=== PATIENT | male | born 1985 | race Caucasian/White ===

== ENCOUNTER 2021-03-22 09:43 | Emergency (ER) | payer BC ==
[~2021-03-22] VITALS: Ht 180.3 cm; Wt 110.0 kg
--- NOTE | 2021-03-22 10:31 | NUR ---
REPORT OF PT FROM KADEEM WOOD. ASSUMING CARE OF PT AT THIS TIME.
[2021-03-22 10:54] VITALS: BP 126/82
--- NOTE | 2021-03-22 10:55 | NUR ---
REPORT OF PT TO RN ROBYN AT THIS TIME. ALL QUESTIONS ANSWERED.
== END 2021-03-22 10:56 | disposition home or self-care (01) ==
LOC: ED 10:35
DX: F31.9 Bipolar disorder, unspecified (principal); Z76.0 Encounter for issue of repeat prescription
CPT/HCPCS: 99281

== ENCOUNTER 2021-05-18 10:29 | Emergency (ER) | payer MEDICAID ==
[~2021-05-18] VITALS: Ht 180.3 cm; Wt 116.5 kg
[2021-05-18] MEDS ORDERED: ASPIRIN 81 MG TABLET CHEW ONE (10:59)
[2021-05-18] MEDS ORDERED: ASPIRIN 81 MG TABLET CHEW PO ONE (11:00)
--- NOTE | 2021-05-18 11:00 | NUR ---
PATIENT WALKED BACK FROM TRIAGE WITH CHIEF C/O MIGRAINE X4 DAYS. PATIENT REPORTS N/V/D, DENIES SOB OR CP. NADN, CONNECTED TO MONITOR, VSS, CALL LIGHT WITHIN REACH.
[2021-05-18 11:28] LABS: ALANINE AMINOTRANSFERASE 41 U/L (12-78); ALBUMIN 3.7 g/dL (3.4-5.0); ANION GAP 5 mmol/L (5-15); CALCIUM 9.1 mg/dL (8.5-10.1); CHLORIDE 110 mmol/L (98-107); CREATININE 0.95 mg/dL (0.7-1.3)
[2021-05-18] MEDS ORDERED: MORPHINE SULFATE 4 MG/ML, 1ML IVPush PRN (11:30)
[2021-05-18 11:33] LABS: ALKALINE PHOSPHATASE 110 U/L (45-117); BILIRUBIN,TOTAL 0.6 mg/dL (0.2-1.0); TOTAL PROTEIN 6.7 g/dL (6.4-8.2); TROPONIN I < 0.015 ng/mL (0.000-0.045)
[2021-05-18] MEDS ORDERED: KETOROLAC 30 MG/1 ML ONE (11:41)
[2021-05-18] MEDS ORDERED: DEXAMETHASONE 4 MG/ML, 5ML ONE (11:41)
[2021-05-18] MEDS ORDERED: ONDANSETRON 2MG/ML, 2ML ONE (11:41)
[2021-05-18] MEDS ORDERED: MORPHINE SULFATE 4 MG/ML, 1ML ONE (11:42)
--- NOTE | 2021-05-18 11:58 | NUR ---
20 GAUGE IV STARTED LEFT AC, PATIENT MEDICATED PER eMAR, CONNECTED TO MONITOR, VSS, NADN, CALL LIGHT WITHIN REACH.
[2021-05-18] MEDS ORDERED: DEXAMETHASONE 4 MG/ML, 1ML IVPush SCH (12:00)
[2021-05-18] MEDS ORDERED: KETOROLAC 30 MG/1 ML IVPush ONE (12:30)
[2021-05-18] MEDS ORDERED: ONDANSETRON 2MG/ML, 2ML IVPush ONE (12:30)
[2021-05-18] MEDS ORDERED: SODIUM CHLORIDE 0.9% 1,000ML IVBOLUS ONE (12:30)
--- NOTE | 2021-05-18 13:12 | NUR ---
Note dion in [facility] - 05/18/21 at 1315 by [email or web address] IV removed with tip intact. Patient given discharge instructions and prescription and they have confirmed that they understand the instructions. Patient ambulatory with steady gait. NAD, all questions answered appropriately, denies additional needs at this time. No personal belongings left in room after discharge.
--- NOTE | 2021-05-18 13:45 | NUR ---
IV removed with tip intact. Patient given discharge instructions and prescription and they have confirmed that they understand the instructions. Patient ambulatory with steady gait. NAD, all questions answered appropriately, denies additional needs at this time. No personal belongings left in room after discharge.
== END 2021-05-18 13:13 | disposition home or self-care (01) ==
LOC: ED 10:39
DX: G43.009 Migraine without aura, not intractable, without status migrainosus (principal); R11.2 Nausea with vomiting, unspecified; F17.200 Nicotine dependence, unspecified, uncomplicated
CPT/HCPCS: 36415; 71045; 80053; 83880; 84484; 96361; 96374; 96375; 99284; J1100; J1885; J2270; J2405; J7030

== ENCOUNTER 2021-06-01 08:42 | Emergency (ER) | payer MEDICAID ==
[~2021-06-01] VITALS: Ht 180.3 cm; Wt 114.2 kg
--- NOTE | 2021-06-01 11:22 | NUR ---
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
--- NOTE | 2021-06-01 11:28 | NUR ---
PT WALKED BACK FROM TRIAGE WITH CHIEF COMPLAINT OF RIGHT ABD PAIN STARTING YESTERDAY WITH N/V.
[2021-06-01] MEDS ORDERED: ONDANSETRON 2MG/ML, 2ML ONE (12:17)
[2021-06-01] MEDS ORDERED: MORPHINE SULFATE 4 MG/ML, 1ML ONE (12:18)
--- NOTE | 2021-06-01 12:26 | NUR ---
MEDICATED ORDERED. PT RESTING IN BED, CALL LIGHT IN REACH.
[2021-06-01] MEDS ORDERED: SODIUM CHLORIDE 0.9% 1,000ML IVBOLUS ONE (12:30)
[2021-06-01] MEDS ORDERED: MORPHINE SULFATE 4 MG/ML, 1ML IVPush PRN (12:30)
[2021-06-01] MEDS ORDERED: SODIUM CHLORIDE FLUSH 10ML SYR IVF ONE (12:30)
[2021-06-01] MEDS ORDERED: ONDANSETRON 2MG/ML, 2ML IVPush ONE (12:30)
[2021-06-01 12:52] LABS: MICROSCOPIC NOT IND
--- NOTE | 2021-06-01 13:05 | NUR ---
REPORT FROM STEPHY QUAN
[2021-06-01 13:15] LABS: ALANINE AMINOTRANSFERASE 57 U/L (12-78); ALBUMIN 3.5 g/dL (3.4-5.0); CALCIUM 9.3 mg/dL (8.5-10.1); CREATININE 0.86 mg/dL (0.7-1.3)
[2021-06-01 13:16] LABS: BASOPHILS % (AUTO) 0 % (0-1); EOSINOPHILS % (AUTO) 4 % (1-7); LYMPHOCYTES % (AUTO) 20 % (22-44); MEAN CORPUSCULAR HEMOGLOBIN 30.4 pg (27.5-34.5); MEAN CORPUSCULAR HGB CONC 33.5 g/dL (33.2-36.2); MEAN PLATELET VOLUME 8.9 fL (7.4-10.4); MONOCYTES % (AUTO) 6 % (2-9); NEUTROPHILS % (AUTO) 71 % (42-75); PLATELET COUNT 207 x10^3/uL (130-400); RED BLOOD COUNT 5.04 x10^6/uL (4.38-5.82); RED CELL DISTRIBUTION WIDTH 13.8 % (9.4-14.8)
[2021-06-01 13:17] LABS: ALKALINE PHOSPHATASE 104 U/L (45-117); BILIRUBIN,TOTAL 0.5 mg/dL (0.2-1.0)
[2021-06-01 13:23] LABS: ANION GAP 7 mmol/L (5-15); CHLORIDE 107 mmol/L (98-107)
--- NOTE | 2021-06-01 13:40 | NUR ---
To ct scan 1l ns complete With reassessment pain/nausea improved to 3/10
[2021-06-01] MEDS ORDERED: OMNIPAQUE 350 MG/ML, 100ML BOTTLE ONE (13:53)
[2021-06-01 14:28] VITALS: BP 124/75
== END 2021-06-01 14:30 | disposition home or self-care (01) ==
LOC: ED 14:24
DX: R10.31 Right lower quadrant pain (principal); R11.2 Nausea with vomiting, unspecified; R19.7 Diarrhea, unspecified; G43.909 Migraine, unspecified, not intractable, without status migrainosus; F17.210 Nicotine dependence, cigarettes, uncomplicated; Z90.49 Acquired absence of other specified parts of digestive tract
CPT/HCPCS: 36415; 74177; 80053; 81003; 83690; 85025; 96361; 96374; 96375; 99285; 99406; J2270; J2405; J7030; Q9967

== ENCOUNTER 2021-06-19 09:47 | Emergency (ER) | payer MEDICAID ==
[~2021-06-19] VITALS: Ht 180.3 cm; Wt 117.9 kg
[2021-06-19 09:49] VITALS: BP 163/102
--- NOTE | 2021-06-19 10:02 | NUR ---
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
--- NOTE | 2021-06-19 10:45 | NUR ---
dc instructions reviewed
== END 2021-06-19 10:47 | disposition home or self-care (01) ==
LOC: ED 10:30
DX: R51.9 Headache, unspecified (principal); Z76.0 Encounter for issue of repeat prescription
CPT/HCPCS: 99281